=== PATIENT | male | born 1965 | race Caucasian/White ===

== ENCOUNTER 2019-02-23 09:23 | Observation (INO) ==
[2019-02-23] MEDS ORDERED: Pantoprazole 40 MG VIAL IVP ONE (09:31)
[2019-02-23] MEDS ORDERED: Ondansetron 4 MG/2 ML VIAL IVP ONE (09:31)
[2019-02-23] MEDS ORDERED: 0.9 % Sodium Chloride 1,000 ML IVC ONE (09:31)
[2019-02-23] MEDS ORDERED: Morphine Sulfate 2 MG/ML SYRINGE IVP ONE ×2 (09:31→12:06)
[2019-02-23] MEDS ORDERED: Isovue-370 500 ML BOTTLE IVP ONE (09:33)
[2019-02-23 10:32] LABS: Basophils # 0.1 K/mcL (0.0-0.2); Eosinophils # 0.3 K/mcL (0.0-0.6); Eosinophils % 2.8 %; Hematocrit 41.7 % (37.5-50.1); Hemoglobin 14.2 g/dL (12.9-16.9); Immature Granulocytes % 0.4 % (0-4); Lymphocytes # 2.2 K/mcL (0.6-4.6); Lymphocytes % 20.9 %; Mean Corpuscular HGB Conc 34.1 g/dL (31.6-35.5); Mean Corpuscular Hemoglobin 30.7 pg (28.0-33.3); Mean Corpuscular Volume 90.3 fL (83.0-100.0); Mean Platelet Volume 10.1 fL (9.4-12.4); Monocytes # 0.8 K/mcL (0.0-1.3); Monocytes % 8.1 %; Neutrophils # 6.9 K/mcL (1.6-8.9); Platelet Count 383 K/mcL (140-400); Red Blood Count 4.62 M/mcL (4.19-5.50); Red Cell Distribution Width 13.2 % (11.5-14.5); Segmented Neutrophils % 66.8 %; White Blood Count 10.3 K/mcL (4.3-11.1)
[2019-02-23 10:56] LABS: Alanine Aminotransferase 32 Units/L (7-52); Albumin 4.1 g/dL (3.5-5.7); Albumin/Globulin Ratio 1.2 (1.1-2.2); Alkaline Phosphatase 68 Units/L (34-104); Amylase 26 Units/L (29-103); Aspartate Amino Transferase 33 Units/L (13-39); BUN/Creatinine Ratio 24 (6-26); Bilirubin,Direct 0.2 mg/dL (0.0-0.2); Bilirubin,Indirect 0.5 mg/dL (0.0-1.2); Bilirubin,Total 0.7 mg/dL (0.3-1.0); Blood Urea Nitrogen 22 mg/dL (6-20); Calcium 9.5 mg/dL (8.6-10.3); Carbon Dioxide 27 mEq/L (23-29); Chloride 97 mEq/L (98-107); Globulin 3.3 g/dL (2.4-3.5); Glucose 134 mg/dL (70-105); Lipase 11 Units/L (11-82); Osmolality,Calculated 285 (280-300); Potassium 3.4 mEq/L (3.5-5.1); Sodium 135 mEq/L (136-145); Total Protein 7.4 g/dL (6.4-8.9); Troponin I < 0.03 ng/mL (< 0.04); eGFR For African Americans > 60 (> 60); eGFR For Non-African Americans > 60 (> 60)
[2019-02-23 11:12] LABS: Prothrombin Time 11.6 Seconds (9.4-12.1)
[2019-02-23 11:15] LABS: Activated Partial Thrombo Time 34.2 Seconds (26.0-36.0)
[2019-02-23 12:04] LABS: Bilirubin,Urine Negative (Negative); Blood,Urine Negative (Negative); Clarity,Urine Clear (Clear); Color,Urine Yellow (Yellow); Glucose,Urine (UA) Normal (Normal); Ketones,Urine Negative (Negative); Leukocyte Esterase,Urine Negative (Negative); Nitrite,Urine Negative (Negative); Protein,Urine Trace mg/dL (Neg-Trace); Specific Gravity,Urine 1.013 (1.010-1.025); Urobilinogen,Urine Normal (Normal)
[2019-02-23] MEDS ORDERED: Dextrose Gel 15 GM/37.5 ML TUBE PO PRN ×2 (14:12)
[2019-02-23] MEDS ORDERED: D5% in Water 1,000 ML IVC PRN (14:12)
[2019-02-23] MEDS ORDERED: *HR* Dextrose 50 % in Water (Syg) 50 ML SYRINGE IVP PRN (14:12)
[2019-02-23] MEDS ORDERED: Ondansetron 4 MG/2 ML VIAL IVP PRN (14:14)
[2019-02-23] MEDS ORDERED: Naloxone 0.4 MG/ML INJ IVP PRN (14:14)
[2019-02-23] MEDS: Lisinopril 20 MG TABLET PO SCH (16:29)
[2019-02-23] MEDS: 0.9 % Sodium Chloride 1,000 ML IVC SCH (18:02)
[2019-02-23] MEDS: Insulin LISPRO 300 UNITS/3 ML VIAL SQ SCH (18:03)
[2019-02-23] MEDS: Morphine Sulfate 2 MG/ML SYRINGE IVP PRN (18:36)
[2019-02-23] MEDS: Famotidine 20 MG TABLET PO SCH (21:10)
[2019-02-23] MEDS: Magnesium Oxide 400 MG TABLET PO SCH (21:10)
[2019-02-23] MEDS: Topiramate 25 MG TABLET PO SCH (21:10)
[2019-02-23] MEDS: Mirtazapine 15 MG TABLET PO SCH (21:10)
[2019-02-23] MEDS: *HR* Heparin 5,000 UNIT/ML VIAL SQ SCH (21:11)
[2019-02-24] MEDS: Morphine Sulfate 2 MG/ML SYRINGE IVP PRN ×4 (00:59→21:03)
[2019-02-24] MEDS ORDERED: Saliva Stimulant 100ml BOTTLE PO PRN (01:01)
[2019-02-24] MEDS: *HR* Heparin 5,000 UNIT/ML VIAL SQ SCH ×3 (05:23→20:22)
[2019-02-24 06:32] LABS: Basophils # 0.1 K/mcL (0.0-0.2); Basophils % 1.4 %; Eosinophils # 0.3 K/mcL (0.0-0.6); Eosinophils % 4.4 %; Hematocrit 35.5 % (37.5-50.1); Hemoglobin 11.8 g/dL (12.9-16.9); Immature Granulocytes % 0.2 % (0-4); Lymphocytes # 1.9 K/mcL (0.6-4.6); Lymphocytes % 31.6 %; Mean Corpuscular HGB Conc 33.2 g/dL (31.6-35.5); Mean Corpuscular Volume 93.2 fL (83.0-100.0); Mean Platelet Volume 10.4 fL (9.4-12.4); Monocytes # 0.6 K/mcL (0.0-1.3); Monocytes % 9.7 %; Neutrophils # 3.1 K/mcL (1.6-8.9); Platelet Count 294 K/mcL (140-400); Red Blood Count 3.81 M/mcL (4.19-5.50); Red Cell Distribution Width 13.2 % (11.5-14.5); Segmented Neutrophils % 52.7 %; White Blood Count 5.9 K/mcL (4.3-11.1)
[2019-02-24 06:55] LABS: BUN/Creatinine Ratio 18 (6-26); Blood Urea Nitrogen 13 mg/dL (6-20); Calcium 8.9 mg/dL (8.6-10.3); Carbon Dioxide 28 mEq/L (23-29); Chloride 102 mEq/L (98-107); Glucose 127 mg/dL (70-105); Osmolality,Calculated 282 (280-300); Potassium 3.1 mEq/L (3.5-5.1); Sodium 135 mEq/L (136-145); eGFR For African Americans > 60 (> 60); eGFR For Non-African Americans > 60 (> 60)
[2019-02-24] MEDS: Famotidine 20 MG TABLET PO SCH ×2 (08:33→20:22)
[2019-02-24] MEDS: Magnesium Oxide 400 MG TABLET PO SCH ×2 (08:33→20:22)
[2019-02-24] MEDS: BuPROPion XL (24 HR) 150 MG TABLET PO SCH (08:34)
[2019-02-24] MEDS: Furosemide 20 MG TABLET PO SCH (08:34)
[2019-02-24] MEDS: Lisinopril 20 MG TABLET PO SCH (08:34)
[2019-02-24] MEDS: hydroCHLOROthiazide 25 MG TABLET PO SCH (08:35)
[2019-02-24] MEDS: Pantoprazole 40 MG VIAL IVP SCH (08:35)
[2019-02-24] MEDS: Insulin LISPRO 300 UNITS/3 ML VIAL SQ SCH ×3 (08:42→18:02)
[2019-02-24] MEDS: 0.9 % Sodium Chloride 1,000 ML IVC SCH (10:53)
[2019-02-24] MEDS: *HR* OxyCODONE Immed Rel 5 MG TABLET PO PRN (11:43)
[2019-02-24] MEDS: Topiramate 25 MG TABLET PO SCH (20:21)
[2019-02-24] MEDS: Mirtazapine 15 MG TABLET PO SCH (20:22)
[2019-02-24 23:28] LABS: Adenovirus F 40/41 PCR Not detected (Not detect); Astrovirus PCR Not detected (Not detect); C.difficile Toxin A/B Gene PCR Not detected (Not detect); Campylobacter by PCR Not detected (Not detect); Cryptosporidium by PCR Not detected (Not detect); Cyclospora cayetanensis PCR Not detected (Not detect); E. coli O157 by PCR Not detected (Not detect); Entamoeba histolytica PCR Not detected (Not detect); Enteroaggregative E.coli(EAEC) Not detected (Not detect); Enteropathogenic E.coli(EPEC) Not detected (Not detect); Enterotoxigenic E.coli (ETEC) Not detected (Not detect); Giardia lamblia PCR Not detected (Not detect); Norovirus GI/GII PCR Not detected (Not detect); Plesiomonas shigelloides PCR Not detected (Not detect); Rotavirus A PCR Not detected (Not detect); Salmonella PCR Not detected (Not detect); Sapovirus PCR Not detected (Not detect); Shig/EnteroinvasiveE coli EIEC Not detected (Not detect); Shigalike tox-prod E coli STEC Not detected (Not detect); Vibrio PCR Not detected (Not detect); Vibrio cholerae PCR Not detected (Not detect); Yersinia enterocolitica PCR Not detected (Not detect)
[2019-02-25] MEDS: *HR* Heparin 5,000 UNIT/ML VIAL SQ SCH (05:15)
[2019-02-25] MEDS: Morphine Sulfate 2 MG/ML SYRINGE IVP PRN (05:24)
[2019-02-25 06:31] LABS: Basophils # 0.1 K/mcL (0.0-0.2); Basophils % 1.3 %; Eosinophils # 0.2 K/mcL (0.0-0.6); Eosinophils % 3.2 %; Hematocrit 37.1 % (37.5-50.1); Immature Granulocytes % 0.2 % (0-4); Lymphocytes % 37.8 %; Mean Corpuscular HGB Conc 32.3 g/dL (31.6-35.5); Mean Corpuscular Hemoglobin 30.8 pg (28.0-33.3); Mean Corpuscular Volume 95.1 fL (83.0-100.0); Mean Platelet Volume 10.4 fL (9.4-12.4); Monocytes # 0.5 K/mcL (0.0-1.3); Monocytes % 8.8 %; Neutrophils # 2.6 K/mcL (1.6-8.9); Platelet Count 299 K/mcL (140-400); Red Cell Distribution Width 13.1 % (11.5-14.5); Segmented Neutrophils % 48.7 %; White Blood Count 5.2 K/mcL (4.3-11.1)
[2019-02-25 06:52] LABS: BUN/Creatinine Ratio 9 (6-26); Blood Urea Nitrogen 7 mg/dL (6-20); Calcium 8.7 mg/dL (8.6-10.3); Carbon Dioxide 27 mEq/L (23-29); Chloride 105 mEq/L (98-107); Glucose 104 mg/dL (70-105); Osmolality,Calculated 290 (280-300); Potassium 3.2 mEq/L (3.5-5.1); Sodium 141 mEq/L (136-145); eGFR For African Americans > 60 (> 60); eGFR For Non-African Americans > 60 (> 60)
[2019-02-25] MEDS: Magnesium Oxide 400 MG TABLET PO SCH (08:44)
[2019-02-25] MEDS: Famotidine 20 MG TABLET PO SCH (08:45)
[2019-02-25] MEDS: Furosemide 20 MG TABLET PO SCH (08:45)
[2019-02-25] MEDS: Lisinopril 20 MG TABLET PO SCH (08:45)
[2019-02-25] MEDS: Pantoprazole 40 MG VIAL IVP SCH (08:46)
[2019-02-25] MEDS: hydroCHLOROthiazide 25 MG TABLET PO SCH (08:46)
[2019-02-25] MEDS: BuPROPion XL (24 HR) 150 MG TABLET PO SCH (08:46)
[2019-02-25] MEDS: Insulin LISPRO 300 UNITS/3 ML VIAL SQ SCH (08:48)
[2019-02-25 10:20] VITALS: BP 161/94
[2019-02-25] MEDS: *HR* OxyCODONE Immed Rel 5 MG TABLET PO PRN (11:24)
== END 2019-02-25 12:45 | disposition home or self-care (01) ==
LOC: EMEROOARM 09:23 → 3ANU 09:23 → SUATTDRO 13:33 → 3ANU 14:50
PROVIDERS: ADMIT Pharmacist; ATTEND Family Medicine